=== PATIENT | male | born 1955 | race Caucasian/White ===

== ENCOUNTER 2023-08-11 06:15 | Day surgery (SDC) | payer OTHER ==
[~2023-08-11] VITALS: Ht 165.1 cm; Wt 88.5 kg
[2023-08-11] MEDS ORDERED: fentaNYL citrate 0.05 MG/ML VIAL ONE (07:19)
[2023-08-11] MEDS: fentaNYL citrate 0.05 MG/ML VIAL IVP ONE (07:37)
[2023-08-11] MEDS: LIDOCAINE 2% 100 MG/5 ML UJET TP ONE (07:43)
== END 2023-08-11 08:45 | disposition home or self-care (01) ==
LOC: MDS 06:15 → MMU 06:24 → MDS 08:45
PROVIDERS: ATTEND Internal Medicine Gastroenterology
DX: Z12.11 Encounter for screening for malignant neoplasm of colon (principal); K63.5 Polyp of colon; K57.30 Diverticulosis of large intestine without perforation or abscess without bleeding; I10 Essential (primary) hypertension; F32.A Depression, unspecified; Z86.73 Personal history of transient ischemic attack (TIA), and cerebral infarction without residual deficits; Z79.899 Other long term (current) drug therapy; Z98.890 Other specified postprocedural states
CPT/HCPCS: 45385; J3010